=== PATIENT | female | born 1960 | race Caucasian/White ===

== ENCOUNTER 2021-06-21 10:50 | Outpatient (CLI) | payer OTHER, SELFPAY ==
--- NOTE | 2021-06-21 11:02 | EKG12_ITS ---
Test Reason : PRE OP Blood Pressure : / mmHG Vent. Rate : 084 BPM Atrial Rate : 084 BPM P-R Int : 150 ms QRS Dur : 076 ms QT Int : 382 ms P-R-T Axes : 053 041 040 degrees QTc Int : 451 ms Normal sinus rhythm Normal ECG Confirmed by WADE PONCE, MYKE ([id number]), editorial assistant CORTEZ HANLEY ([id number]) on 06/22/2021 7:52:12 AM Referred By: Eric Cates Confirmed By:MYKE OLVERA MD
[2021-06-21 11:52] LABS: Hematocrit 39.9 % (37-47); Hemoglobin 13.2 g/dL (12.0-15.0); Mean Corp Hgb Conc 33.1 g/dL (32-36); Mean Corpuscular Hgb 29.9 pg (27.0-32.0); Mean Corpuscular Volume 90.5 fL (81-99); Mean Platelet Vol. 10.1 fl (6.2-12.0); Platelet Count 285 K/mm3 (150-450); RBC Distribution Width SD 47.1 fl (35.1-43.9); Red Blood Count 4.41 M/mm3 (4.2-5.4)
[2021-06-21 12:20] LABS: Anion Gap 5 (5-15); BUN 15 mg/dL (7-18); BUN/Creat Ratio 19.8 RATIO (10-20); Calcium,Total 9.2 mg/dL (8.5-10.1); Chloride 105 mmol/L (98-107); Creatinine, Serum 0.76 mg/dL (0.55-1.02); EST Glomerular Filtration Rate 83 mL/min (>60); Est Glom Filt Rate - Afr Amer 101 mL/min (>60); Glucose 114 mg/dL (74-106); Potassium 4.1 mmol/L (3.5-5.1); Sodium Level 141 mmol/L (136-145)
== END 2021-06-21 23:59 | disposition short-term general hospital (02) ==
LOC: PSN 10:57
PROVIDERS: Referring Provider Otolaryngology; Visit Provider Otolaryngology
DX: Z01.818 Encounter for other preprocedural examination (principal)
CPT/HCPCS: 36415; 80048; 85027; 93005

== ENCOUNTER 2021-06-27 15:09 | Outpatient (CLI) | payer OTHER, SELFPAY ==
--- NOTE | 2021-06-27 12:45 | LES_PTH ---
PATIENT: ERIKA TIDWELL LOC: [facility] U#:[id number] AGE/SX: 60/F ROOM: RE06/27/[address]: Dr. Chinedu Cates MD : [id number] BED: DIS: 06/27/2021 SPEC #: [id number] RECD: 06/27/21 14:59 STATUS: TODD GUEVARA #: [id number] VENECIA: 06/27/21 12:[address]: Chinedu Cates DEPT: SURGICAL PATHOLOGY RECD BY: Rose Lara ENTERED: 06/28/21 09:31 SP TYPE: Lesion OTHR DR: ASAF Celeste [facility] Tissues: A - Palate, NOS B - Palate, NOS Procedures: Surgery Specimen Level IV HEADER OPERATION: Excision oral lesion PRE-OP DIAGNOSIS: Soft palate lesion TISSUE SUBMITTED: A - Left soft palate lesion - superior, B - Left soft palate lesion - inferior MICROSCOPIC DIAGNOSIS A. Left soft palate lesion, superior, excision: Fragments of squamous papilloma. B. Left soft palate lesion, inferior, excision: A fragment of squamous mucosa with focal changes suggestive of squamous papilloma, JERALD:saleem 06/29/2021 COMMENT The specimen also shows adjacent fibroconnective tissue and skeletal muscle tissue. Correlation with clinical findings and appropriate follow up are necessary. MICROSCOPIC DESCRIPTION Slides are reviewed. GROSS DESCRIPTION A - Received in fixative is one container labeled with the patient's name and designated left soft palate lesion superior. The specimen consists of multiple irregular fragments of darden mucosal tissue that in aggregate measure 1 x 0.5 x 0.1 cm. The specimen is totally submitted in one cassette. B - Received in fixative is one container labeled with the patient's name and designated left soft palate lesion inferior. The specimen consists of a fragment of darden-pink soft tissue measuring 0.3 x 0.2 x 0.1 cm. The specimen is totally submitted in one cassette. / JERALD:saleem 06/28/2021 TC:1 CPT: 38733 x2
== END 2021-06-27 23:59 | disposition short-term general hospital (02) ==
LOC: LABSPEC 15:17
PROVIDERS: Referring Provider Otolaryngology; Visit Provider Otolaryngology
DX: K13.70 Unspecified lesions of oral mucosa (principal)
CPT/HCPCS: 88305